=== PATIENT | male | born 1980 | race Caucasian/White ===

== ENCOUNTER 2023-03-30 09:25 | Emergency (ER) | payer MEDICAID ==
[~2023-03-30] VITALS: Ht 162.6 cm; Wt 99.8 kg
[2023-03-30 09:48] VITALS: BP 160/115; PULSE 104; RESP 18; TEMP 98; O2SAT 98
[2023-03-30 09:56] VITALS: O2SAT 98
[2023-03-30 11:08] LABS: BASOPHILS % (AUTO) 0.2 % (0.0-2.0); EOSINOPHILS # (AUTO) 0.1 K/uL (0-0.4); EOSINOPHILS % (AUTO) 0.5 % (0.0-4.0); HEMATOCRIT 44.9 % (36-52); HEMOGLOBIN 14.7 g/dL (12.0-18.0); LYMPHOCYTES # (AUTO) 1.8 K/uL (2.0-11.5); LYMPHOCYTES % (AUTO) 16.3 % (20.5-51.1); MEAN CORPUSCULAR HEMOGLOBIN 27 pg (27-31); MEAN CORPUSCULAR HGB CONC 33 g/dL (33-37); MEAN CORPUSCULAR VOLUME 81.6 fL (80-94); MONOCYTES # (AUTO) 0.6 K/uL (0.8-1.0); MONOCYTES % (AUTO) 5.7 % (1.7-9.3); NEUTROPHILS # (AUTO) 8.5 K/uL (1.8-7.7); NEUTROPHILS % (AUTO) 77.3 % (42.2-75.2); PLATELET COUNT (AUTO) 189 K/uL (140-450); RED BLOOD CELL COUNT(AUTO) 5.51 MIL/uL (4.20-6.10); RED CELL DISTRIBUTION WIDTH 14.3 % (11.6-13.7)
[2023-03-30 11:23] LABS: INR 1.11 (0.8-1.2); PARTIAL THROMBOPLASTIN TIME 26.2 secs (22-35.6); PROTHROMBIN TIME 11.5 secs (10.8-13.4)
[2023-03-30 11:46] LABS: ALANINE AMINOTRANSFERASE 33 U/L (12-78); ALBUMIN 3.9 g/dL (3.4-5.0); ALCOHOL, BLOOD < 3 mg/dL (<10); ALKALINE PHOSPHATASE 71 U/L (50-136); ASPARTATE AMINOTRANSFERASE 29 U/L (15-37); BILIRUBIN,DIRECT 0.1 mg/dL (0.0-0.3); TOTAL BILIRUBIN 0.6 mg/dL (0.0-1.0); TOTAL PROTEIN, SERUM 7.5 g/dL (6.4-8.2)
[2023-03-30 11:57] LABS: ANION GAP 13.4 (8-16); CALCIUM 8.4 mg/dL (8.5-10.1); CARBON DIOXIDE 22.5 mmol/L (21-32); POTASSIUM 3.9 mmol/L (3.5-5.1)
[2023-03-30 13:42] LABS: AMPHETAMINE, URINE POSITIVE ng/ml (NEG <=1000); BARBITURATE, URINE NEGATIVE ng/ml (NEG <=200); BENZODIAZEPINE, URINE NEGATIVE ng/mL (NEG <=200); CANNABINOID, URINE POSITIVE ng/mL (NEG <=50); COCAINE, URINE POSITIVE ng/mL (NEG <=300); OPIATE, URINE NEGATIVE ng/mL (NEG <=2000); PHENCYCLIDINE SCREEN,URINE NEGATIVE ng/mL (NEG <=25)
[2023-03-30] MEDS ORDERED: IBUP-2213 PO ×2 (14:55→15:08)
[2023-03-30] MEDS ORDERED: ACET-2619 PO ×2 (14:55→15:08)
[2023-03-30 15:47] VITALS: BP 136/72; PULSE 78; RESP 20; TEMP 98.2; O2SAT 98
== END 2023-03-30 15:47 | disposition home or self-care (01) ==
LOC: MED 09:25
DX: S22.31XA Fracture of one rib, right side, initial encounter for closed fracture (principal); R79.1 Abnormal coagulation profile; F15.10 Other stimulant abuse, uncomplicated; F14.10 Cocaine abuse, uncomplicated; R40.0 Somnolence; Z79.899 Other long term (current) drug therapy; Z79.1 Long term (current) use of non-steroidal anti-inflammatories (NSAID); V43.52XA Car driver injured in collision with other type car in traffic accident, initial encounter; Y93.89 Activity, other specified; Y92.410 Unspecified street and highway as the place of occurrence of the external cause; Y99.8 Other external cause status
CPT/HCPCS: 36415; 70450; 71101; 71275; 72125; 80048; 80076; 80305; 84484; 85025; 85379; 85610; 85730; 93005; 99285; G0482; Q9967